=== PATIENT | female | born 1965 | race Caucasian/White ===

== ENCOUNTER 2019-02-02 10:23 | Emergency (ER) | payer SELFPAY ==
[~2019-02-02] VITALS: Ht 167.6 cm; Wt 54.4 kg
[~2019-02-02 10:23] MED LIST: HYDACE5 PO; IBUP800 PO; OMEP40CA12 PO
== END 2019-02-02 12:50 | disposition home or self-care (01) ==
LOC: ER 10:23
DX: S50.02XA Contusion of left elbow, initial encounter (principal); W17.89XA Other fall from one level to another, initial encounter
CPT/HCPCS: 73090; 99283-25

== ENCOUNTER 2019-04-26 11:00 | Emergency (ER) | payer MEDICAID ==
[~2019-04-26] VITALS: Ht 165.1 cm; Wt 77.1 kg
[2019-04-26] MEDS ORDERED: CEPH500 PO (13:12)
[2019-04-26] MEDS ORDERED: Norco 10-325 T1 EACH PO (13:12)
[2019-04-26] MEDS ORDERED: Zofran8 MG PO (13:12)
[2019-04-26] MEDS ORDERED: Naprosyn500 MG PO (13:12)
== END 2019-04-26 13:47 | disposition home or self-care (01) ==
LOC: ER 11:00
DX: S61.412A Laceration without foreign body of left hand, initial encounter (principal); S66.922A Laceration of unspecified muscle, fascia and tendon at wrist and hand level, left hand, initial encounter; W22.8XXA Striking against or struck by other objects, initial encounter; F17.200 Nicotine dependence, unspecified, uncomplicated
CPT/HCPCS: 73120; 90714; J0690; J2405; J3010; J7030

== ENCOUNTER → 2020-02-18 | Outpatient (CLI) | payer OTHER ==
[~2020-02-18] MED LIST changes: +CEPH500 PO; +Naprosyn500 MG PO; +Norco 10-325 T1 EACH PO; +Zofran8 MG PO
[2020-02-18 08:02] LABS: BASOPHILS ABSOLUTE AUTO 0.04 K/mm3 (0.00-0.23); BASOPHILS PERCENT AUTO 1 % (0-2); EOSINOPHILS ABSOLUTE AUTO 0.18 K/mm3 (0.00-0.68); EOSINOPHILS PERCENT AUTO 3 % (0-6); Hematocrit 43.5 % (33.0-51.0); Hemoglobin 14.7 g/dL (11.5-16.0); IMMATURE GRAN ABSOLUTE AUTO 0.01 K/mm3 (0.00-0.10); IMMATURE GRAN PERCENT AUTO 0 % (0-1); LYMPHOCYTES ABSOLUTE AUTO 1.45 K/mm3 (0.84-5.20); LYMPHOCYTES PERCENT AUTO 24 % (21-46); MONOCYTES ABSOLUTE AUTO 0.54 K/mm3 (0.16-1.47); MONOCYTES PERCENT AUTO 9 % (4-13); Mean Corpuscular HGB Conc 33.8 g/dL (31.5-36.5); Mean Corpuscular Volume 92 fL (80-100); Mean Platelet Volume 10.2 fL (9.1-12.4); NEUTROPHILS ABSOLUTE AUTO 3.81 K/mm3 (1.96-9.15); NEUTROPHILS PERCENT AUTO 63 % (41-73); Platelet Count 268 K/mm3 (150-400); RDW Coefficient Variation 11.6 % (11.7-14.2); RDW Standard Deviation 39.1 fL (35.1-46.3); Red Blood Cell Count 4.74 M/mm3 (3.80-5.20); White Blood Cell Count 6.03 K/mm3 (4.00-11.30)
[2020-02-18 08:36] LABS: Alanine Aminotransfer (ALT/SGP 23 U/L (12-78); Albumin, Blood 3.9 g/dL (3.4-5.0); Alk Phos 65 U/L (40-126); Anion Gap 9 mmol/L (6-16); Aspartate Aminotrans (AST/SGOT 24 U/L (12-37); Bilirubin, Total 0.5 mg/dL (0.1-1.0); Blood Urea Nitrogen 12 mg/dL (8-24); Bun/Creatinine Ratio 13.6 (12.0-20.0); CO2, Blood 27 mmol/L (21-32); Calcium, Blood 9.1 mg/dL (8.5-10.1); Chloride, Blood 104 mmol/L (98-108); Creatinine, Blood 0.88 mg/dL (0.40-1.00); Glomerular Filtration Rate >60 (60-); Glucose, Blood 89 mg/dL (70-99); Sodium, Blood 140 mmol/L (136-145); Total Protein, Blood 7.9 g/dL (6.4-8.2)
== END | disposition home or self-care (01) ==
LOC: LAB SHORT 07:57 → LAB EV 07:57
PROVIDERS: Physician Assistant Medical
DX: R22.1 Localized swelling, mass and lump, neck (principal)
CPT/HCPCS: 80053; 85025

== ENCOUNTER → 2020-02-26 | Outpatient (CLI) | payer OTHER | LOC: PLD 07:22 → LAB SHORT 07:22 | DX: R59.0 Localized enlarged lymph nodes (principal) | CPT/HCPCS: 88173 ==